=== PATIENT | female | born 1945 | race Caucasian/White ===

== ENCOUNTER 2017-09-20 09:02 | Day surgery (SDC) | payer MEDICARE, BC, MEDICAID ==
[2017-09-20] MEDS ORDERED: EPINEPHrine 0.1 MG/ML SYG (10:53)
[2017-09-20] MEDS ORDERED: PROPOFOL 40 ML (10:53)
== END 2017-09-20 14:37 | disposition home or self-care (01) ==
LOC: GIL 09:02
DX: K29.70 Gastritis, unspecified, without bleeding (principal); K44.9 Diaphragmatic hernia without obstruction or gangrene; K21.9 Gastro-esophageal reflux disease without esophagitis; K57.90 Diverticulosis of intestine, part unspecified, without perforation or abscess without bleeding; K64.8 Other hemorrhoids
CPT/HCPCS: 43239; 88305; 88312